=== PATIENT | female | born 1980 | race Caucasian/White ===

== ENCOUNTER 2022-05-09 06:22 | Day surgery (SDC) | payer MEDICAID, SELFPAY ==
[2022-05-08 09:51] VITALS: BMI 32.8
[2022-05-09] VITALS (10 sets, daily range): BP systolic 113–138; BP diastolic 75–97; PULSE 77–97; RESP 13–21; TEMP 36.1–36.7; O2SAT 92–98
--- NOTE | 2022-05-09 | XR_ITS ---
WS: [id number] XR wrist LT min 3V* [id number] REASON FOR EXAM: Left distal radius ORIF FINDINGS: Intraoperative left wrist demonstrating plate and screw fixation of transverse distal left radial met aphyseal fracture with vertical component extending into the articular surface. Moderately displaced ulnar styloid fracture. Surgical appliances and radial fracture fragments are in good position and alignment. XR/XR wrist LT min 3V* [id number] IMPRESSION: Fixation of distal left radial fracture without abnormality.
[2022-05-09] MEDS: sodium chloride 0.9% 1,000 ML 30 ML IV (06:56)
[2022-05-09] MEDS: ketorolac 30 mg/mL INJ IVP (06:58)
[2022-05-09] MEDS: acetaminophen 1,000 MG/100 ML PIGGYBACK 400 MG IV (07:01)
--- NOTE | 2022-05-09 07:03 | W.PM.OPSUD ---
Surgery/Procedure H&P Update DATE OF PROCEDURE: May 09, 2022 DATE H&P PERFORMED: 05/03/22 CHANGES TO PREVIOUS DOCUMENTATION: None PREOP DIAGNOSIS: Left distal radius fracture displaced, intra-articular PRIMARY INDICATION FOR PROCEDURE: Left distal radius displaced intra-articular fracture PLANNED PROCEDURE: Operation Date: 05/09/22 08:05 Proposed Procedures p left wrist distal radius open reduction internal fixation 23060,S52.5(Left) - Radames Andino DO
--- NOTE | 2022-05-09 07:06 | ANES.PREANE2 ---
Pre-Anesthetic Assessment Height/Weight: Height 1.6 m Weight 83.915 kg Temp Pulse Resp BP Pulse Ox O2 Del Method 98.1 F 95 18 136/97 97 05/09/22 06:51 05/09/22 06:51 05/09/22 06:51 05/09/22 06:51 05/09/22 06:51 05/09/22 06:51 Preop Diagnosis: Left distal radius fracture displaced, intra-articular Operation Date: 05/09/22 08:05 Proposed Procedures p left wrist distal radius open reduction internal fixation 39831,S52.5(Left) - Radames Andino DO Familial anesthetic complications: None Was Beta Tiki taken within 24 hours: N/A Was Clonidine taken within 24 hours: N/A Last intake: Intake Last Liquid Date 05/08/22 Last Liquid Time 23:00 Last Solid Date 05/08/22 Last Solid Time 17:30 Social Tobacco and No alcohol Exam alert, oriented x 3, clear to auscultation bilaterally and regular rate & rhythm Airway Mallampati: Class III Dentition: chipped History/ROS No significant complaints Anesthetic Plan ASA status: 1 Anesthesia: Choice and Regional (specify below) Risk of > 500 ml blood loss (7ml/kg in children): No Medications/Allergies Home Medications Medication Instructions Recorded Confirmed Last Taken Type oxycodone-acetaminophen 5 mg-325 1 tab PO Q4H PRN pain 6 days #36 05/03/22 05/09/22 05/08/22 22:00 Rx mg tablet tabs ibuprofen 200 mg tablet 200 mg PO Q6H PRN Pain, Mild 05/09/22 05/09/22 05/02/22 History Allergies Allergy/AdvReac Type Severity Reaction Status Date / Time No Known Allergies Allergy Unverified 05/08/22 09:49 Current Medications Generic Name Dose Route Start Last Admin Trade Name Freq PRN Reason Stop Dose Admin Sodium Chloride 1,000 mls @ 30 mls/hr 05/09/22 06:30 05/09/22 06:56 Sodium Chloride 0.9% IV 05/10/22 06:29 30 mls/hr .Q24H [place] Administration PFSH Anesthesia Medical History (Updated 05/07/22 @ 23:01 by Radames Andino DO) Distal radius fracture, left Data Anesthesia Cardiac Studies: No Data to Display
[2022-05-09 07:10] LABS: OR HCG Qualitative Urine Negative (Negative)
--- NOTE | 2022-05-09 07:41 | ANES.PROC ---
Anesthesia Procedures Procedure/Date: 05/09/22 Nerve Block ^: Nerve Block 1: Main Anesthesia: general anesthesia Time Out Performed: Yes Consent: requested by attending/covering physician, from patient, from other, risks and benefits reviewed and patient agrees to proceed Nerve block location: axillary (L) Anesthesia monitors applied: pulse oximetry, EKG, BP cuff and oxygen Nerve block position: supine Anesthetic Used: ropivicaine 0.5% (30 ml) and with decadron (4 mg) Ultrasound used to: recognize landmarks and visualize and ID brachial plexus Nerve Stimulator Used?: No Interscalene/Femoral BLK: 2 stimuplex 22 g needle used for position and inplane approach, visualize local anesthetic spread and no vascular puncture identified Injection: neg aspiration of heme Patient Tolerated Procedure: well and no complications Complications: none
[2022-05-09] MEDS: ceFAZolin 2,000 MG in sodium chloride 0.9% (plus) 50 ML 100 MG IV (08:19)
--- NOTE | 2022-05-09 10:06 | PM.OP2 ---
Brief Operative Note Date of procedure: 05/13/22 Pre-op diagnosis: Close displaced left distal radius fracture intra-articular Post-op diagnosis: same Procedure Done: Left distal radius fracture open reduction internal fixation, intra-articular 3 part Surgeon: Radames Andino Estimated blood loss (mL): 10 Complications: none Post-op Plan: Patient taken to PACU in stable condition recovering well. Patient in splint. We will be nonweightbearing left upper extremity Will receive appropriate discharge instruction as well as pain medication postoperatively. We will follow-up with me in the office in 2 weeks. Condition: stable Disposition: same day Coding Level of Care Code Acute Code for Edmundo Fox
--- NOTE | 2022-05-09 10:07 | PM.PACU ---
PACU note Narrative: Patient taken to PACU in stable condition recovering well. Pain well controlled. Patient received regional anesthesia unable to assess motor or sensory. Splint on in place clean dry and intact. Fingertips warm well perfused. Exam: awake Disposition: discharged
--- NOTE | 2022-05-09 10:07 | PM.OP ---
Operative Report Date of procedure: May 09, 2022 Pre-op diagnosis: Preop Diagnosis Left distal radius fracture displaced, intra- articular Post-op diagnosis: Same, ulnar styloid fracture Procedure done: Left distal radius fracture open reduction internal fixation, 3 part intra-articular Closed treatment left ulnar styloid fracture Interpretation mini fluoroscopic C arm imaging Implants: Arthrex 3-hole volar distal radius locking plate 5x locking screws 2.4 mm, 2 x 3.5 mm locking screws, 1x 3.5 mm cortical screw Surgeon: Radames Andino DO Estimated blood loss: 10 mL 62 minutes IV fluids: 900 mL Complications: None Findings: See operative report narrative Condition: stable Disposition: same day Brief History: Patient been seen and worked up in the outpatient setting sustained a ground-level fall on outstretched extremity to the left wrist. Has a dorsally angulated and intra-articular left distal radius fracture with a noticeable clinical deformity. Patient was seen evaluate outpatient setting and x-ray findings demonstrate this preoperative diagnosis. Given her young age as well as plan for earlier mobilization however we will keep her restricted on weight weighted and resistance activities but on her list for earlier mobilization as well as more anatomic reduction recommended surgical intervention. Through shared decision making after weighing out her options of nonoperative and operative intervention she would like to have this fixed. Talked about risk benefits complications and alternatives to surgical nonsurgical treatment options. Understanding her risk for surgery she agrees to proceed with surgery. All questions answered. Consent obtained and signed in the office. Procedure: Patient seen and evaluated in the preoperative holding area. Consent was signed and reviewed with patient. Correct extremity was then marked. Patient was seen evaluate by anesthesia department. Received regional anesthesia. Once cleared for surgery patient was brought back to the operative suite. Patient was placed in supine position an armboard to the left upper extremity. Patient then underwent anesthesia per the anesthesia department. Nonsterile tourniquet applied to the left upper arm. Left upper extremity was then prepped and draped in standard orthopedic fashion. Final timeout performed. Patient received appropriate preoperative antibiotics. Esmarch tourniquet was used exsanguinate the left upper extremity tourniquet was insufflated to 250 mmHg. A standard modified FCR volar approach to the distal radius was performed. Sharp scalpel incision through skin and subcutaneous tissue. I then switched to Littler dissection scissors and identified the FCR tendon and incised the sheath longitudinally. Once this was appropriately released the tendon was taken ulnarly and then I used dissection scissors to incise the floor of the FCR sheath and protected the radial artery throughout this case. Next I then bluntly sweep the FPL tendon sheath ulnarly and identified the pronator quadratus which was then incised in standard fashion along the radial border of the distal radius as well as distally and sleep in a standard 7 fashion. Next identified the fracture site. This was then opened and debrided of fracture hematoma and loose fracture fragments that were in pending anatomic reduction. Next I made multiple manual attempts of the distal radius however there was strong pull on the radial styloid from the brachial radialis which was a major deforming force. As result I did release the brachial radialis to allow for appropriate mobilization of this fracture fragment for anatomic reduction. Once this was performed I then performed a standard reduction maneuver placed my plate and pinned this with K wires and made adjustments to it was appropriately placed. Given the distal nature of the fracture and in order to capture the fracture fragments I did place this right abutting the watershed line but was just proximal in an appropriate position to The fracture fragments. At this point time I like my plate position placed my oblong screw hole proximally to compress the plate to bone. Next I then drilled and placed a distal bicortical screw to compress the plate to bone distally and capture my volar tilt. Once this was completed I confirmed that I like my plate placement as well as position. Next I then sequentially drilled measured and placed locking screws in the radial styloid as well as throughout my distal locking screws. I then switched out the cortical screw that I had placed to compress plate to bone and remeasured and subsequently placed a shorter locking screw. These were confirmed to be all subchondral appropriately rafter ring with excellent fixation and no dorsal cortex penetration. Next I completed my fixation proximally where I subsequently inserted the locking drill guide and subsequently drilled measured and placed appropriate length locking screws 3.5 mm. Once this was done I then confirmed appropriate anatomic reduction roman catholic of height, radial inclination and tilt volar. This was all performed with multiple orthogonal mini C arm images. Final images were then taken, DRUJ was assessed and stable. Tourniquet was then deflated hemostasis satisfactory with bipolar electrocautery. Wound bed was thoroughly irrigated. Incision was then closed with interrupted 3-0 Vicryl suture and running Monocryl stitches. Steri-Strips applied. 4 x 4's ABD Curlex soft roll and a volar splint was then applied. Patient was then awakened from anesthesia and taken to PACU in stable condition. Disposition: Patient taken PACU in stable condition recovering well. Will receive appropriate discharge directions as well as pain medication postoperatively. We will follow-up with me in the office in 2 weeks. Be nonweightbearing to the left arm.
[2022-05-09] MEDS: oxyCODONE-APAP 5-325 mg Tablet 1 TAB PO (11:11)
--- NOTE | 2022-05-09 13:36 | ANE.PACU2 ---
Inpatient post-anesthesia follow up: Airway intact: Yes Vital signs: Temperature 98.1 F Pulse Rate 77 Respiratory Rate 18 Blood Pressure 119/75 Pulse Oximetry 96 Oxygen Delivery Me thod Room Air Oxygen Flow Rate Fraction of Inspir ed Oxygen Hydration adequate: Yes Nausea and vomiting: No Pain level: 1 Mental status: Baseline
== END 2022-05-09 11:36 | disposition home or self-care (01) ==
PROVIDERS: Anesthesiology; Visit Provider Student in an Organized Health Care Education/Training Program
PROC: (CPT 25609; principal; 2022-05-09 07:55)
DX: S52.572A Other intraarticular fracture of lower end of left radius, initial encounter for closed fracture (principal); S52.615A Nondisplaced fracture of left ulna styloid process, initial encounter for closed fracture; X58.XXXA Exposure to other specified factors, initial encounter
CPT/HCPCS: 25609; 73110; 76000; 81025; 84703; C1713; J0131; J0690; J1100; J1885; J2405; J2795; J3010; J7030

== ENCOUNTER → 2022-05-21 10:24 | Outpatient (BNVA) | payer MEDICAID, SELFPAY | PROVIDERS: Visit Provider Student in an Organized Health Care Education/Training Program | DX: X58.XXXA Exposure to other specified factors, initial encounter (principal); S52.502A Unspecified fracture of the lower end of left radius, initial encounter for closed fracture | CPT/HCPCS: 73110 ==

== ENCOUNTER → 2022-07-02 10:23 | Outpatient (BNVA) | payer MEDICAID, SELFPAY | PROVIDERS: Visit Provider Student in an Organized Health Care Education/Training Program | DX: S52.502D Unspecified fracture of the lower end of left radius, subsequent encounter for closed fracture with routine healing (principal); S52.612D Displaced fracture of left ulna styloid process, subsequent encounter for closed fracture with routine healing; X58.XXXD Exposure to other specified factors, subsequent encounter | CPT/HCPCS: 73110 ==